=== PATIENT | female | born 1965 | race Caucasian/White ===

== ENCOUNTER 2019-10-06 07:03 | Observation (INO) | payer OTHER ==
[~2019-10-06 07:03] MED LIST: Buffered Lidocaine 1% SYRIN* 1 ML/SYRINGE INTRADERM ONE; Lactated Ringers 1000 ML Bag* 1,000 ML IV SCH
[2019-10-06] MEDS ORDERED: Lidocaine 2.5%/Prilocain 2.5%* 5 GM TUBE ONE (07:21)
[2019-10-06] MEDS ORDERED: Buffered Lidocaine 1% SYRIN* 1 ML/SYRINGE INTRADERM ONE (07:21)
[2019-10-06] MEDS ORDERED: ceFAZolin 2 GM in NS PREMIX(*) 2 GM/100 ML BAG IVPB ONE (13:04)
[2019-10-06] MEDS ORDERED: Bupivacaine 0.25% SDV PF* 10 ML VIAL INJ ONE (13:47)
[2019-10-06] MEDS ORDERED: Methylene Blue 0.5 %* 50 MG/10 ML AMP IV ONE (14:05)
[2019-10-06] MEDS ORDERED: Midazolam* 1 MG/ML 2 ML VIAL (2 MG) ONE (14:08)
[2019-10-06] MEDS ORDERED: fentaNYL* 50 MCG/ML 2 ML VIAL (100 MCG VIAL) ONE ×3 (14:08→18:16)
[2019-10-06] MEDS ORDERED: Propofol* 10 MG/ML 20 ML BTL ONE (14:08)
[2019-10-06] MEDS ORDERED: Rocuronium* 10 MG/ML VIAL ONE (14:09)
[2019-10-06] MEDS ORDERED: Lidocaine 2% PF * 5 ML VIAL ONE (14:09)
[2019-10-06] MEDS ORDERED: DiMENhydriNATE IV* 50 MG/ML VIAL IV PUSH PRN (16:14)
[2019-10-06] MEDS ORDERED: Acetaminophen IV 1GM/100ML * 1,000 MG/100 ML VIAL IVPB ONE (16:14)
[2019-10-06] MEDS ORDERED: Naloxone* 0.4 MG/ML 1 ML VIAL IV PRN (16:14)
[2019-10-06] MEDS ORDERED: Scopolamine 1.5 mg* PATCH TRANSDERM PRN (16:14)
[2019-10-06] MEDS ORDERED: fentaNYL* 50 MCG/ML 2 ML VIAL (100 MCG VIAL) IV PRN (16:14)
[2019-10-06] MEDS ORDERED: Scopolamine 1.5 mg* PATCH ONE (16:17)
[2019-10-06] MEDS ORDERED: HYDROmorphone INJ* 0.5 MG/0.5 ML SYRINGE IV SLOW PU PRN (19:03)
[2019-10-06] MEDS ORDERED: oxyCODONE/Acetamin 5/325 MG* TAB PO PRN (19:03)
--- NOTE | 2019-10-06 19:03 | BRIEFOPN ---
Brief Operative/Procedure Note - Operation Details Pre-Op Diagnosis: Left breast cancer Post-Op Diagnosis: same Procedures: Left mastectomy with sentinel lymph node biopsy Surgeon(s)/Proceduralists: Juan. Assist: TAMERA Baires; TAMERA White Anesthesia: GET Estimated Blood Loss: 100 ml; Fluids: 1800 ml crystalloid Findings: as above Specimen(s)/Culture(s) Description: Left breast; sentinel lymph node(s). Drains : 1 CHELSIE Complications: none
[2019-10-06] MEDS ORDERED: Docusate CAP* 100 MG PO PRN (19:08)
[2019-10-06] MEDS ORDERED: HYDROmorphone INJ1* 1 MG/ML SYRINGE IV PRN (19:08)
[2019-10-06] MEDS ORDERED: Acetaminophen TAB* 325 MG PO PRN (19:08)
[2019-10-06] MEDS ORDERED: Ondansetron INJ* 2 MG/ML VIAL IV PRN (19:08)
[2019-10-06] MEDS ORDERED: Ketorolac INJ* 30 MG/ML 1 ML VIAL IV PRN (19:08)
[2019-10-06] MEDS ORDERED: Cetirizine* 10 MG TAB PO PRN (19:14)
[2019-10-06] MEDS ORDERED: LORazepam TAB(*) 0.5 MG PO PRN (19:14)
[2019-10-06] MEDS ORDERED: Acetaminophen IV 1GM/100ML * 100 ML ONE (19:32)
[2019-10-06] MEDS: Lactated Ringers 1000 ML Bag* 1,000 ML IV SCH (20:44)
--- NOTE | 2019-10-07 01:57 | OP ---
CC: Dr. Ceci Jordan* OPERATIVE REPORT: DATE OF OPERATION: 10/06/19 - Inpatient, room SSU 335-01 DATE OF : 65 ATTENDING SURGEON: Jesica Martinez MD REPLANTING MACHINE CREWMAN: Dr. Yessenia Albarado, TAMERA Antony; TAMERA Torres ANESTHESIOLOGIST: Joe Uribe DO ANESTHESIA: General. PRE-OP DIAGNOSIS: Left breast cancer. POST-OP DIAGNOSIS: Left breast cancer. OPERATIVE PROCEDURE: Left breast mastectomy and sentinel lymph node biopsy. SENTINEL LYMPH NODE BIOPSY: Performed with lymphoscintigraphy and methylene blue dye. SPECIMENS: Left breast and sentinel lymph node. ESTIMATED BLOOD LOSS: Approximately 100 cc. INDICATIONS FOR SURGERY: Ms. Lawson is a very pleasant 54-year-old female who was found to have left breast cancer after identifying a palpable retroareolar breast mass. She had also had palpable axillary lymph nodes, one of which had been biopsied and confirmed metastatic adenocarcinoma. She underwent neoadjuvant chemotherapy and after completion of the neoadjuvant chemotherapy she appeared to have complete response based on her bilateral breast MRI. The lymph node that had been previously clipped was unfortunately unable to be identified on ultrasound and could not be wire localized. In discussion with her oncologist, Dr. Jordan, the decision was to proceed with a left mastectomy and sentinel lymph node biopsy with the hope that there was a complete pathologic response to the neoadjuvant chemotherapy, in which case, she may not require a completion axillary lymph node dissection and possibly could undergo radiation therapy. I did discuss with her that there is a chance that she may require an axillary lymph node dissection and she understood these things. She understood that the risks of surgery included but were not limited to bleeding, infection, injury to nearby structures, and the possibility of flap necrosis. She understood the alternatives and benefits and wished to proceed. DESCRIPTION OF PROCEDURE: Prior to beginning the surgery in the preoperative holding area 5 cc of methylene blue had been injected on the periareolar area. The patient had undergone lymphoscintigraphy but there was no uptake that was seen in her axilla, therefore the methylene blue dye was administered to help to assist identifying the sentinel lymph node during the surgery. The patient understood that she may have to undergo an axillary lymph node dissection if none could be identified. The patient was brought back to the operating room and placed on the operating room table in a supine position. Sequential compression devices were placed on the bilateral lower extremities for DVT prophylaxis. Antibiotics were administered. General endotracheal anesthesia was induced. The patient's left arm and breast were prepped and draped in a normal sterile fashion. Prior to beginning the procedure, a time-out was performed verifying the patient's name, date of , and the procedure to be performed. After this, an elliptical incision was made around the areolar complex to include the area where the methylene blue had been injected. Attention was turned towards first developing the superior flap. The skin was divided down through the subcutaneous tissue and then the superior flap was developed all the way up to the clavicle. Once the clavicle was identified and palpated, the flap was taken down towards the pectoralis fascia and attention was turned towards developing the medial aspect of the flap that extended towards the lateral border of the sternum. The inferior flap was developed all the way down to the inframammary fold and the lateral flap was developed towards the latissimus. During this dissection small perforating vessels were often identified and cauterized or clipped. Once the borders were distinguished the breast was able to be taken off of the pectoralis fascia using electrocautery. When this was done and the lateral border was also taken down to where the latissimus dorsi was identified, all that remained was the axillary tail and the axillary tissue. Once the breast was almost ready to be removed the sentinel lymph node biopsy was performed. The handheld gamma probe was placed into the axilla, there were very faint counts identified within the axilla. With great care and dissection, once the sentinel lymph node was identified its in-situ count was 67 and the ex-vivo count was 58. In addition to having these counts there was also a small amount of methylene blue that was also identified within the node. After the sentinel lymph node was removed, axillary bed count was 1, therefore it was determined that there were no other sentinel lymph nodes were present. Examination of the axillary contents also did not show any other methylene blue within the lymphatics or any other lymph nodes. Therefore, the breast was removed in its entirety from the breast cavity. It was marked with a short suture at the superior border, medium length suture at the medial border, and a long suture at the lateral border and carried off as a specimen. Next, attention was turned towards irrigation and hemostasis. Once this was satisfactorily obtained, attention was turned towards closure. There was redundancy of the skin flaps especially at the superior flaps so a portion of the excess skin was excised in order to allow for a flat chest wall closure. Once this was done the superior and inferior flaps were reapproximated in the subdermal layer using interrupted 3-0 Vicryl sutures. Prior to this a #10 CHELSIE drain was placed through the inferior flap and secured to the chest wall using a Prolene suture. Two interrupted Monocryl sutures were used to reapproximate the skin because the incision was made a little bit larger than the drain itself. After this was secured, local anesthesia consisting of 0.5% Marcaine and 1% lidocaine was infiltrated through the CHELSIE valve and allowed to irrigate within the chest wall cavity. The skin was closed using running 4-0 Monocryl sutures. Sterile dressing was then placed including fluffs and Ross bandage and the patient's anesthesia was reversed and she was taken to the PACU in stable condition. At the end of the case all counts were correct and I was present during the entirety of the case. [id number]/CPS #: [id number] MOISES
[2019-10-07] MEDS ORDERED: Calcium Carbonate CHEW TAB* 500 MG (TUMS) PO ONE (02:30)
[2019-10-07] MEDS ORDERED: Heparin VIAL(*) 5000 UNITS/ML VIAL (FIVE THOUSAND) SUBCUT SCH (06:00)
[2019-10-07] MEDS: Lactated Ringers 1000 ML Bag* 1,000 ML IV SCH (07:29)
[2019-10-07 07:43] VITALS: BP 129/65
[2019-10-07] MEDS ORDERED: Lactobacillus Acidophilus* 1 TAB PO SCH (09:00)
[2019-10-07] MEDS ORDERED: Amphetamine/Dextroamph ER(NF) 10 MG CAP.ER PO SCH (09:00)
[2019-10-07] MEDS ORDERED: FLUoxetine CAP* 20 MG PO SCH (09:00)
[2019-10-07] MEDS ORDERED: Pantoprazole TAB * 40 MG TAB PO SCH (09:00)
--- NOTE | 2019-10-07 20:41 | DS ---
DISCHARGE SUMMARY: DATE OF ADMISSION: 10/06/19 DATE OF DISCHARGE: 10/07/19 SERVICE: General Surgery. ATTENDING SURGEON: Dr. Jesica Martinez. ADMISSION DIAGNOSIS: Left breast cancer. DISCHARGE DIAGNOSIS: Left breast cancer. OPERATION TITLE: Left mastectomy and sentinel lymph node biopsy. HOSPITAL COURSE: Mr. Lawson is a very pleasant 54-year-old female with a history of left breast cancer, status post neoadjuvant chemotherapy. She underwent an elective left mastectomy and sentinel lymph node biopsy on . She tolerated the surgery very well and she was admitted overnight for observation. On the day of discharge, on postoperative day 1, she was doing very well. She was tolerating a regular diet. Her pain was well controlled and she was not even requiring the pain medications. She was ambulating without assistance. She was urinating on her own and she was without any complaints. She was therefore determined to be an appropriate candidate for discharge. DISCHARGE PHYSICAL EXAMINATION: Vital signs: Temperature is 97.9, heart rate is 100, respiratory rate is 16, O2 sat is 98% O2 on room air, blood pressure is 129/65. General: She is a well appearing woman, lying comfortably in bed, in no apparent distress. Left chest wall incision clean, dry and intact. Steri- strips are in place. No significant erythema or drainage. CHELSIE drain without serosanguineous fluid in the bulb, approximately 70 cc. DISCHARGE MEDICATION: Percocet 5/325 mg p.o. q.6 hours p.r.n. for severe pain. DISCHARGE INSTRUCTIONS: The patient was given pre-printed handout of discharge instructions for care for incision while at home. She was also given CHELSIE drain instructions by the nursing staff prior to discharge. She was told that she can shower or sponge bath and she should keep her incision clean and dry and to not immerse in water. She should also proceed with range of motion exercises of left upper extremity. FOLLOWUP: The patient has appointment on 10/09/19 with myself. DISPOSITION: To Home. CONDITION: Good. [id number]/CPS #: [id number] MTDD
[2019-10-09] MEDS ORDERED: Scopolamine PATCH Remove* 1 NOTE MISC PATCH OFF ONE (16:00)
== END 2019-10-07 12:30 | disposition home or self-care (01) ==
LOC: SDS 07:03 → INTOOBSV 22:11 → SSU 22:11
PROVIDERS: ADMIT Surgery; ATTEND Surgery
DX: C50.912 Malignant neoplasm of unspecified site of left female breast (principal); Z92.21 Personal history of antineoplastic chemotherapy
CPT/HCPCS: 78195; 81025; 88307; 88342; 88360; 96372; A9270-GY; A9541; G0378; J0690; J1644; J2250; J2704; J3010; J3490